=== PATIENT | male | born 1990 | race Caucasian/White ===

== ENCOUNTER → 2025-03-23 | Outpatient (CLI) | payer BC, SELFPAY ==
--- NOTE | 2025-03-23 16:28 | RAD_ITS ---
PROCEDURE: HAND MIN 3 VIEWS 03/23/2025 REASON FOR EXAM: HAND INJURY TECHNIQUE: Three views of the right hand COMPARISON: None FINDINGS: No acute fracture or dislocations. No acute soft tissue abnormalities. No radiographic foreign body. RAD/Hand Min 3 Views IMPRESSION: No acute fracture or dislocations. Reading Location: [id number]
== END | disposition home or self-care (01) ==
LOC: MTRAD 16:27
PROVIDERS: PCP Family Medicine; Referring Provider Family Medicine; Visit Provider Family Medicine
DX: M79.641 Pain in right hand (principal)
CPT/HCPCS: 73130